=== PATIENT | female | born 2000 | race Caucasian/White ===

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

== ENCOUNTER 2024-12-03 17:46 | Emergency (ER) | payer OTHER, SELFPAY ==
--- OUTSIDE RECORDS SUMMARY | 2024-12-03 17:48 | XMS_ITS | Clinical Summary ---
Author Organization [facility] [address] Address [address] [place] [address] Phone Care Team Providers Care Manager Labor Delivery Name Role Phone Veronica Schaeffer MD Primary Care Provider [phone] Allergies Active Allergy Reactions Criticality Noted Date Comments Penicillins Medications traMADoL (ULTRAM) 50 mg tablet Take 1-2 tablets (50-100 mg total) by mouth every 6 (six) hours as needed 8 Active ondansetron ODT (ZOFRAN-ODT) 4 mg disintegrating tablet Take 1 tablet (4 mg total) by mouth every 8 (eight) hours as needed 4 Active naproxen (NAPROSYN) 500 mg tabletIndications:A nti-inflammatory Take 1 tablet (500 mg total) by mouth 2 (two) times a day as needed for pain (pain) 30 tablet 4 Active spironolactone (ALDACTONE) 50 mg tablet TAKE 1 TABLET(50 MG) BY MOUTH DAILY FOR 7 DAYS THEN INCREASE DOSE TO 1 TABLET TWICE DAILY 180 tablet 1 5 Active norgestimate-ethiny l estradioL (Yuko) 0.25-0.035 mg per tablet TAKE 1 TABLET BY MOUTH DAILY 84 tablet 3 5 Active Active Problems Problem Noted Date Diagnosed Date Hyperandrogenism 04/05/2024 PCOS (polycystic ovarian syndrome) 09/18/2023 Hirsutism 09/14/2022 Irregular menstrual cycle 09/14/2022 Assessment & Plan (09/18/2023 4:48 PM CDT): Monitor bleeding pattern with upcoming menses. If continues to bleed through through 1st row of active pills in pill pack, plan to change NATHAN for better cycle management. After regulation of menses, we will repeat her pelvic ultrasound to recheck her ovaries which have been consistently enlarged on previous imaging due to her PCOS. Assessment & Plan (09/14/2022 7:34 AM CDT): Dicussed PCOS; labs and pelvic ultrasound ordered - await results. Plan to start NATHAN for cycle regulation after pelvic ultrasound done; consider Provera to initiate withdrawal bleed if needed. Morbid obesity with BMI of 45.0-49.9, adult 08/27 Assessment & Plan (09/14/2022 7:48 AM CDT): Low fat, low carbohydrate diet encouraged. Include more lean protein from animal or plant sources and non-starchy vegetables in diet. Encouraged to incorporate daily activity focusing on cardiovascular health such as walking or light intensity aerobic exercise for 30-40 minutes, 4-5 times per week. Consider work up for diabetes after review of labs ordered at today's visit. Autoantibody titer positive 03/11/2017 Childhood obesity 03/11/2017 Encounters Date Type Department Care Team Description 11/13/2024 10:55 AM CDT Lab [address] PCOS (polycystic ovarian syndrome); Hyperandrogenism 11/12/2024 Orders Only [facility] [address] [place] [address] Olinda Martinez NP PCOS (polycystic ovarian syndrome) (Primary Dx); Hyperandrogenism 09/30/2024 Results Follow-Up [facility] [address] [place] [address] Olinda Martinez NP Pap with reflex to High Risk HPV and Genotyping (Cytology Component) 09/23/2024 3:48 PM CDT - 09/23/2024 11:59 PM CDT [place] [address] Well woman exam; Screening examination for STD (sexually transmitted disease) Discharge Disposition: Discharge to home or self care 09/23/2024 3:00 PM CDT [facility] [address] [facility] [address] [place] [address] Olinda Martinez, NEUROLOGY NURSE Well woman exam (Primary Dx); Screening examination for STD (sexually transmitted disease) from Last 3 Months Immunizations Immunization Administration Dates Next Due DTaP 12/11/2006, 4,04/15/2003,02/12,2002 HPV, Quadrivalent 09/01/2014,02/23/2014,12/24/19 14 Hep A, Pediatric 12/05/2005 Hep A, Unspecified 11/17/2004 Hep B, Adolescent or Pediatric 04/15/2003,2002,2002 HiB 12/11/2006, 4,04/15/2003,02/12,2002 IPV 12/11/2006, 3,02/12/2003,12/11 Influenza, Live, Intranasal, Quadrivalent 02/23/2014 Influenza, Quadrivalent, Spl it, Preservative Free, Intramuscular 04/05/2015,01/28/2013 Influenza, Split 05/04/2010,03/06/2007 Influenza, Trivalent, IM (MDV) 05/09/2011,2009 Influenza, Unspecified 02/20/2005 MMR 12/11/2006,10/07/2003 Meningococcal MCV4P (Menactra) 12/23/2013 Pneumococcal Conjugate 7-Valent 04/04/20 04,04/15/2003,02/12/2003,12/11 Tdap 01/28/2013 Varicella 12/11/2006,10/07/2003 Family History Medical History Relation Name Comments Lenny's thyroiditis Mother Fami ly history of Lenny thyroiditis - (Added by TW Conv) Relation Name Status Comments Mother Social History Tobacco Use Types Packs/Day Years Used Date Smoking Tobacco: Never Tobacco Cessation:Counseling Given: Not Answered PHQ-2 Answer Date Recorded PHQ-2 Total Score (If total score is 3 or more points, staff should administer the PHQ-9) 0 09/23/2024 Comments No Sex and Gender Information Value Date Recorded Sex Assigned at Not on file 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81 09/23/2024 2:52 PM CDT Plan of Treatment Health Maintenance Due Date Last Done Comments Hepatitis C Screening 2002 Meningococcal B Vaccine (1 o f 2 - Standard) 2018 DTaP/Tdap/Td Vaccine (7 - Td or Tdap) 01/28/2023 01/28/2013, 12/11/2006, 04/04/2004, Additional history exists Influenza Vaccine (#1) 2024 , 04/05/2015, 02/23/2014, Additional history exists Cervical Cancer Screening 09/23/2025 09/23/2024 Depression Screening 09/23/2025 09/23/2024, 09/18/2023, 09/13/2022 Regular Well Visit/Exam 18-64 09/23/2025 09/23/2024, 09/18/2023 Hepatitis B Screening Completed 04/15/2003 , 2002, 2002 Pneumococcal vaccine <65 Completed 004, 04/15/2003, 02/12/2003, Additional history exists Varicella Vaccines Completed 12/11/2006, 10/07/2003 HPV Vaccines Completed 09/01/2014, 01/28, 12/23/2013 Procedures Procedure Name Priority Date/Time Associated Diagnosis Comments EGFR Routine 11/13/2024 10:56 AM CDT PCOS (polycystic ovarian syndrome) Hyperandrogenism COMPREHENSIVE METABOLIC PANEL Routine 11/13/2024 10:56 AM CDT PCOS (polycystic ovarian syndrome) Hyperandrogenism THINPREP PROCESSING (MOLECULAR COMPONENT) Routine 09/23/2024 3:48 PM CDT Well woman exam N. GONORRHOEAE/C. TRACHOMATIS AMPLIFICATION Routine 09/23/2024 3:48 PM CDT Screening examination for STD (sexually transmitted disease) PAP WITH REFLEX TO HIGH RISK HPV Routine 09/23/2024 8:11 AM CDT Well woman exam from Last 3 Months Results * eGFR (11/13/2024 10:56 AM CDT) eGFR >90 >=60 mL/min/1. 73 m2 Comment: Interpretive Data Reference Interval Normal >/= 90 mL/min/1.73m2 Mildly decreased* 60 - 89 mL/min/1.73m2 Mildly to moderately decreased 45 - 59 mL/min/1.73m2 Moderately to severely decreased 30 - 44 mL/min/1.73m2 Severely decreased 15 - 29 mL/min/1.73m2 Kidney Failure < 15 mL/min/1.73m2 *Relative to young adult level Estimated glomerular filtration rate is determined by the 2020 CKD-EPI equation recommended by the National Kidney Foundation (A Unifying Approach to GFR Estimation: Recommendations of the NKF-ASK Task Force on Reassessing the Inclusion of Race in Diagnosing Kidney Disease, JASN 202). The CKD-EPI equation should not be used for patients with unstable renal function and has not been validated in children and those over 70. Current interpretive data was last reviewed 2021. Blood 11/13/2024 10:5 6 AM CDT 11/13/2024 1:19 PM CDT Olinda Martinez NP LAB BLOOD ORDERABLES Final Resul t [facility] ([facility]) [address] [facility] Department [place] [address] * Comprehensive metabolic panel (11/13/2024 10:56 AM CDT) Sodium 140 135 - 145 mmol/L [facility] ([facility]) Potassium, pl 4.0 3.3 - 4.9 mmol/L [facility] Chloride 103 97 - 110 mmol/L [facility] CO2 25 22 - 32 mmol/L [facility] Anion gap 12 2 - 15 mmol/L [facility]) BUN 11 6 - 25 mg/dL [facility] Creatinine 0.77 0.60 - 1.10 mg/dL [facility] Glucose 78 70 - 199 mg/dL [facility] Comment: Interpretive Data Fasting glucose >/= 126 mg/dl is diagnostic for diabetes. Fasting is defined as no caloric intake for at least 8 hours. Fasting glucose between 100 mg/dl to 125 mg/dl is diagnostic of prediabetes. In a patient with classic symptoms of hyperglycemia or hyperglycemic crisis, a random glucose >/= 200 mg/dl is diagnostic for diabetes. In the absence of unequivocal hyperglycemia, results should be confirmed by repeat testing. The classification and Diagnosis of Diabetes Diabetes Care 2021; 46: S19-S40. Current interpretive data was last revised 2022. Calcium 9.7 8.5 - 10.3 mg/dL [facility] Bilirubin, total 0.5 0.1 - 1.2 mg/dL [facility] Protein, pl 7.4 6.5 - 8.5 g/dL [facility]) Albumin 4.2 3.5 - 5.0 g/dL [facility]) Alk phos 61 40 - 130 Units/L [facility] ALT 13 7 - 45 Units/L [facility] AST 21 10 - 45 Units/L [facility]) Blood 11/13/2024 10:5 6 AM CDT 11/13/2024 1:19 PM CDT Olinda Martinez NP LAB BLOOD ORDERABLES Final Resul t [facility] ([place]) [address] [place] [address] Department [place] [address] * ThinPrep processing (Molecular component) (09/23/2024 3:48 PM CDT) ThinPrep processing (Molecular component) Specimen received for processing. [facility] Comment:Testing performed by : [facility], [address] [place] [address]., [id number] Endocervical 09/23/2024 3:48 PM CDT 09/24/2024 12:17 PM CDT Olinda Martinez NP LAB BODY FLUIDS AND STOOLS ORDER MILVIA Final Result Performing Organization Address City/[facility] Co de Phone Number [facility] [address] [facility] Department [place] [address] [facility] * N. gonorrhoeae/C. trachomatis Amplification Thin prep-Endocervical (09/23/2024 3:48 PM CDT) Pathologist [facility] C. trachomatis Not Detected [facility] Comment:Testing performed by : [facility], [address] [place] [address]., [id number] N. gonorrhoeae Not Detected [facility] Comment: Interpretive Data This assay detects Chlamydia trachomatis and Neisseria gonorrhoeae by nucleic acid amplification testing (NAAT). This assay has been cleared by the [place] Food and Drug administration. The performance characteristics of this test have been verified by the [facility] Molecular Infectious Disease laboratory. The performance characteristics of this test have not been evaluated in individuals less than 14 years of age. Current Interpretive Data was last revised on 2023. Testing performed by: [facility], [address] [place] [address]., [id number] Thin prep-Endocervica l (None) 09/23/2024 3:48 PM CDT 09/24/2024 12:17 PM CDT us Olinda Martinez NP LAB MICROBIOLOGY - GENERAL ORDER MILVIA Final Result [facility] [address] Department [place] [address] [facility] * Pap with reflex to High Risk HPV and Genotyping (Cytology Component) (09/23/2024 8:11 AM CDT) Thin prep (Pap test) 09/23/2024 8:11 AM CDT 09/23/2024 8:11 AM CDT Narrative PATHOLOGY - 09/29/2024 9:37 AM CDT [facility] Department of Pathology [address] [place], [place] [id number] Final Report Note to Patients: This report may contain a detailed description of human tissue sent by a health care provider to the laboratory for pathologic evaluation. The content of this report is essential for diagnosis and may provide important critical findings. This information may be unfamiliar to patients to review without a medical professional present. It is advised that the patient review this report in the presence of a health care provider who can answer questions and explain the details. Patient Name: SALEEM BORJAS Address: [address] [place] [address] Gender: F : 2000 (Age: 23) Service: Location: N : [id number] [facility] #: [id number] Patient Type: SPECIMEN Taken: 09/23/2024 Received: 09/23/2024 Accessioned:: 09/24/2024 Reported: 09/29/2024 Physician(s): LESLIE Alvarado FNP Diagnosis: SOURCE OF SPECIMEN Imaged Thinprep Pap Test w/ Reflex HPV - Newspaper Subscription Solicitor Cytologic Material: STATEMENT OF ADEQUACY - Satisfactory for evaluation; endocervical/transformation zone component present GENERAL CATEGORIZATION: - Negative for intraepithelial lesion or malignancy INTERPRETATION: - Numerous RBC's TONI Garcia(ASCP)TONI Lopez(ASCP) Report Electronically Reviewed and Signed Out By TONI Lopez(ASCP) 09/29/2024 09:37:38Specimen(s) Received: A: Imaged Thinprep Pap Test w/ Reflex HPV - Newspaper Subscription Solicitor Cytologic Material Clinical History: Last Menstrual Period: 08/27/2024 The Pap test is a screening test used to aid in the detection of cervical cancer and its precursors. It should not be the sole means by which malignant and premalignant lesions are diagnosed. Both false negative and false positive results may occur. It also has poor sensitivity for the detection of endometrial lesions and should not be used to evaluate suspected endometrial abnormalities. For these reasons it is most important to obtain Pap tests at regular intervals. The performance characteristics of some immunohistochemical stains, fluorescence in-situ hybridization tests and immunophenotyping by flow cytometry cited in this report (if any) were determined by the Surgical Pathology Department at [facility] as part of an ongoing ethanol quality leader program and in compliance with federally mandated regulations drawn from the Clinical Laboratory Improvement Act of 1988 (CLIA '88). Some of these tests rely on the use of analyte specific reagents and are subject to specific labeling requirements by the US Food and Drug Administration. Such diagnostic tests may only be performed in a facility that is certified by the Department of Health and Human Services as a high complexity laboratory under CLIA '88. The FDA has determined that such clearance or approval is not necessary. This test is used for clinical purposes. It should not be regarded as investigational or for research. Nevertheless, federal rules concerning the medical use of analyte specific reagents require that the following disclaimer be attached to the report: This test was developed and its performance characteristics determined by the Surgical Pathology Department [facility]. It has not been cleared or approved by the U. S. Food and Drug Administration. Olinda Martinez NP LAB CYTOLOGY ORDERABLES Final Re sult PATHOLOGY [address] [place] [address] from Last 3 Months Insurance [facility] [address] Care Teams Manager Labor Delivery Relationship Specialty Start Date End Date Veronica Schaeffer MD PCP - General Pediatrics 07/13/20
--- OUTSIDE RECORDS SUMMARY | 2024-12-03 17:48 | XMS_ITS | Clinical Summary ---
Author Organization [facility] Address [address] [place] [address] Phone Care Team Providers Care Operations Officer Afloat Name Role Phone Dimitris Fernández MD Primary Care Provider Allergies Active Allergy Reactions Criticality Noted Date Comments Penicillin G Other (see Comments) 05/30/2023 Medications traMADol (ULTRAM) 50 MG Tablet Take 1-2 Tabs by mouth every 6 hours as needed for Moderate or more severe pain. 20 Tab 8 Active ondansetron (ZOFRAN-ODT) 4 MG TABLET DISPERSIBLE Take 1 Tablet by mouth every 8 hours as needed for Nausea - 1st line. 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 Pulse 89 05/30/2023 3:18 PM GALVAN[employer]ING [employer]OT [employer]NER Temperature 36.6 C (97.8 F) 05/30/2023 3:18 PM GALVANIZING POT RUNNER Respiratory Rate 17 05/30/2023 3:18 PM GALVANIZING POT [employer]NER Oxygen Saturation 97% 05/30/2023 3:18 PM GALVANIZING POT [employer]NER Inhaled Oxygen Concentration - - Weight 127 kg (280 lb) 05/30/2023 12:06 PM GALVANIZING POT RUNNER Height 170.2 cm (5' 7) 05/30/2023 12:06 PM GALVANIZING POT [employer]NER Body Mass Index 43.85 05/30/2023 12:06 PM GALVANIZING POT RUNNER Plan of Treatment Not on file Insurance [place]ICAID [place] Care Teams Operations Officer Afloat Relationship Specialty Start Date End Date Dimitris Fernández MD [address] [place] [address] PCP - General Pediatrics 11/03/17
[2024-12-03 17:57] VITALS: BP 132/67; PULSE 69; RESP 18; TEMP 36.9; O2SAT 100
--- NOTE | 2024-12-03 18:07 | ED_ITS ---
HPI - Burn/Smoke Inhalation General Chief complaint: Wound/Laceration Stated complaint: Burn on Right Arm Time Seen by Provider: 12/03/24 17:55 Source: patient and RN notes reviewed Mode of arrival: ambulatory Limitations: no limitations History of Present Illness HPI Narrative: 24-year-old female presents to the [facility] complaining of burn to left arm. Patient was cooking with mild to cheese when she accidentally got the hot she is on her left arm burning her skin. Patient reports a large burn to her left forearm a couple small arnold to her left upper arm and left lower forearm. Patient reports mild pain. Patient denies any blisters, numbness, tingling, or drainage. Related Data Home Medications ?Medication ?Instructions ?Recorded ?Confirmed ?Last Taken ?Type norgestimate 0.25 mg-ethinyl tablet 12/03/24 Unknown History estradiol 0.035 mg tablet (Yuko) spironolactone 50 mg tablet mg 12/03/24 Unknown History Allergies Allergy/AdvReac Type Severity Reaction Status Date / Time Penicillins Allergy Unknown Rash Verified 12/03/24 17:50 Review of Systems Review of Systems: CONSTITUTIONAL: Denies fever, chills, or sweats. EYES: Denies visual changes, redness, or discharge. ENT: Denies rhinorrhea, congestion, sore throat, or otalgia. CARDIOVASCULAR: Denies chest pain, palpitations, or edema. RESPIRATORY: Denies cough or dyspnea. GASTROINTESTINAL: Denies abdominal pain, nausea, vomiting, or diarrhea. GENITOURINARY: Denies dysuria or hematuria. SKIN: Denies rash or itching. Positive for burn. MUSCULOSKELETAL: Denies back pain, joint pain, or myalgia. NEUROLOGIC: Denies headache, numbness, or weakness. PSYCHIATRIC: Denies anxiety or depression. All other systems reviewed are negative, except as documented in HPI. PMFSH Comments At the time of my signature, I reviewed and agree with the nursing past medical, surgical, social, and family history. There is no relevant family history pertinent to the patient complaint. Exam Narrative: GENERAL: This is a well-nourished, well-developed adult, in no apparent distress. They are non ill-appearing, nontoxic appearing. HEAD: normocephalic, atraumatic. EYES: Sclera clear/white. Conjunctiva normal. Vision is grossly intact. Extraocular movements intact EARS: External ears normal, Hearing grossly intact. NOSE: External nose normal THROAT: Mucous membranes moist, NECK: Neck supple, CARDIOVASCULAR: Regular rate and rhythm RESPIRATORY: Respiratory rate normal, respiratory effort nonlabored, no respiratory distress SKIN: Left arm: Superficial arnold present the patient's left arm. Largest arnold measuring 12 cm x 5 cm located on her anterior forearm. There is a small superficial burn adjacent to the large burn on the medial forearm measuring 2 cm 1.5 cm. Patient has superficial burn to left lower medial upper arm measuring 1 cm x 1 cm. No exudate, no blisters, tender to palpate. No surrounding erythema or swelling. TBSA approximately 2.5%. NEURO: awake, alert, and oriented to person, place and time. There were no obvious focal neurologic abnormalities. EXTREMITIES: No joint tenderness, effusion, or edema noted. Course Course Emergency Course: Portions of this record may have been created with voice recognition software Level of Care: Express Care Visit Vital Signs Vital signs: Vital Signs Temperature 98.4 F 12/03/24 17:57 Pulse Rate 69 12/03/24 17:57 Respiratory Rate 18 12/03/24 17:57 Blood Pressure 132/67 12/03/24 17:57 Pulse Oximetry 100 12/03/24 17:57 Oxygen Delivery Room Air 12/03/24 17:57 Temperature 98.4 F 12/03/24 17:57 Pulse Rate 69 12/03/24 17:57 Respiratory Rate 18 12/03/24 17:57 Blood Pressure 132/67 12/03/24 17:57 Pulse Oximetry 100 12/03/24 17:57 Oxygen Delivery Room Air 12/03/24 17:57 Reviewed MDM - Burn/Smoke Inhalation MDM Narrative Medical decision making narrative: Patient has superficial arnold to her left arm from hot cheese. Will prescribe Silvadene cream. Antibiotic ointment applied along with nonadherent dressings. Discussed physical exam findings. Advised supportive measures and signs/symptoms to go to the ER. Pt is appropriate for outpt treatment and f/u. Differential Diagnosis Differential diagnosis: Likely other (Superficial burn, second-degree burn, 3rd degree burn) Critical Care Time Critical Care Time Critical Care Time: No Discharge Plan Discharge Clinical Impression: Superficial burn Patient Disposition: Home Condition: Stable Instructions: Antibiotic Form, Superficial Burn (ED) Additional Instructions: Wash the wound burn day of mild soap and water. Keep it dry and covered with a nonstick dressing and apply Silvadene cream as directed. Follow-up with PCP in 3-5 days. He developed worsening redness, swelling, pain, fevers, body aches, chills, green/yellow drainage, or any serious concerns please go to the ER immediately. Patient Language: Serbian Prescriptions: New silver sulfadiazine [Silvadene] 1 % cream 1 applic topical BID Qty: 50 0RF Rx Instructions: apply a 1.5 mm thickness, apply to the affected area No Action norgestimate-ethinyl estradiol [Yuko] 0.25-0.035 mg tablet spironolactone 50 mg tablet Follow-up/Referrals: PHYSICIAN,BUSINESS SERVICES TECH [Primary Care Provider] - Time of Disposition: 18:04
== END 2024-12-03 18:15 | disposition home or self-care (01) ==
DX: T22.112A Burn of first degree of left forearm, initial encounter (principal); T22.132A Burn of first degree of left upper arm, initial encounter; X10.1XXA Contact with hot food, initial encounter; Y93.G3 Activity, cooking and baking; J45.909 Unspecified asthma, uncomplicated
CPT/HCPCS: 16000; 99213; G0463